=== PATIENT | female | born 1995 | race Caucasian/White ===

== ENCOUNTER 2020-01-03 10:09 | Emergency (ER) | payer SELFPAY ==
[2020-01-03] MEDS ORDERED: OXYCODONE HCL IR 5 MG TABLET PO ONE (11:07)
[2020-01-03] MEDS ORDERED: ONDANSETRON 4 MG TAB.RAPDIS PO ONE (11:07)
--- NOTE | 2020-01-03 11:08 | ER Document Report ---
ED Medical Screen (RME) - General Chief Complaint: Flank Pain Stated Complaint: FLANK PAIN Time Seen by Provider: 01/03/20 11:04 Primary Care Provider: PAUL JERRY [Primary Care Provider] - Follow up as needed - [facility] Notes: 01/03/20 11:07 Patient is a 24-year-old female no significant past medical history presents complaining of having urinary burning, urgency, frequency that began yesterday. She woke up this morning and has had left flank pain that does not radiate and has been constant that is worse when she pees. She is also had nausea today. No history of kidney stones. The pain does not radiate. No other vaginal bleeding, odor, or discharge. No fever, chest pain, abdominal pain, vomiting, diarrhea. I have treated and performed a rapid initial assessment of this patient. A comprehensive ED assessment and evaluation of the patient, analysis of test results and completion of medical decision making process will be conducted by additional ED providers. PHYSICAL EXAMINATION: GENERAL: Well-appearing, well-nourished and in no acute distress. A&Ox4. Answers questions appropriately. Abdomen: Limited exam, grossly nontender but with CVA tenderness noted to the left side. - Related Data Allergies/Adverse Reactions: acetaminophen [From Tylenol] Allergy (Verified 01/03/20 11:02) camphor [From Vicks Vaporub] Allergy (Verified 01/03/20 11:02) eucalyptus [From Vicks Vaporub] Allergy (Verified 01/03/20 11:02) ibuprofen Allergy (Verified 01/03/20 11:02) menthol [From Vicks Vaporub] Allergy (Verified 01/03/20 11:02) Penicillins Allergy (Verified 01/03/20 11:02) petrolatum,white [From Vicks Vaporub] Allergy (Verified 01/03/20 11:02) turpentine oil [From Vicks Vaporub] Allergy (Verified 01/03/20 11:02) Physical Exam - Vital signs Vitals: Temp Pulse Resp BP Pulse Ox 98.3 F 88 16 117/73 98 01/03/20 10:35 01/03/20 10:35 01/03/20 10:35 01/03/20 10:35 01/03/20 10:35 Course - Vital Signs Vital signs: Temp Pulse Resp BP Pulse Ox 98.3 F 88 16 117/73 98 01/03/20 10:35 01/03/20 10:35 01/03/20 10:35 01/03/20 10:35 01/03/20 10:35 Doctor's Discharge - Discharge Referrals: LOCALMD,NO [Primary Care Provider] - Follow up as needed
[2020-01-03 11:28] LABS: ABSOLUTE BASOPHILS # (AUTO) 0.1 10^3/uL (0.0-0.2); ABSOLUTE EOSINOPHILS # (AUTO) 0.1 10^3/uL (0.0-0.6); ABSOLUTE LYMPHOCYTES (AUTO) 2.7 10^3/uL (0.5-4.7); ABSOLUTE MONOCYTES (AUTO) 0.6 10^3/uL (0.1-1.4); ABSOLUTE NEUT (AUTO) 6.1 10^3/uL (1.7-8.2); BASOPHILS % (AUTO) 1.1 % (0-2); EOSINOPHILS % (AUTO) 1.2 % (0-6); HEMATOCRIT 44.4 % (36.0-47.0); HEMOGLOBIN 14.9 g/dL (12.0-15.5); LYMPHOCYTES % (AUTO) 27.9 % (13-45); MEAN CORPUSCULAR HEMOGLOBIN 28.3 pg (27.0-33.4); MEAN CORPUSCULAR HGB CONC 33.5 g/dL (32.0-36.0); MEAN CORPUSCULAR VOLUME 85 fl (80-97); MONOCYTES % (AUTO) 5.9 % (3-13); PLATELET COUNT 158 10^3/uL (150-450); RED BLOOD COUNT 5.25 10^6/uL (3.72-5.28); SEGMENTED NEUTROPHILS % (AUTO) 63.9 % (42-78); TOTAL CELLS COUNTED % (AUTO) 100 %; WHITE BLOOD COUNT 9.6 10^3/uL (4.0-10.5)
[2020-01-03 11:49] LABS: ALBUMIN 4.6 g/dL (3.5-5.0); ALKALINE PHOSPHATASE 77 U/L (38-126); ANION GAP 10 (5-19); ASPARTATE AMINO TRANSFERASE 23 U/L (14-36); BILIRUBIN,DIRECT 0.3 mg/dL (0.0-0.4); BLOOD UREA NITROGEN 11 mg/dL (7-20); CALCIUM 9.6 mg/dL (8.4-10.2); CARBON DIOXIDE 27 mmol/L (22-30); CHLORIDE 102 mmol/L (98-107); GLUCOSE 96 mg/dL (75-110); POTASSIUM 4.4 mmol/L (3.6-5.0); TOTAL PROTEIN 7.9 g/dL (6.3-8.2)
[2020-01-03 11:50] LABS: APPEARANCE,URINE CLOUDY; BILIRUBIN,URINE NEGATIVE (NEGATIVE); COLOR,URINE YELLOW; GLUCOSE, URINE NEGATIVE (NEGATIVE); KETONES,URINE NEGATIVE (NEGATIVE); PROTEIN,URINE 30 mg/dL (NEGATIVE); URINE SPECIFIC GRAVITY 1.005; UROBILINOGEN,URINE NEGATIVE mg/dL (<2.0)
--- NOTE | 2020-01-03 12:17 | ER Document Report ---
ED General - General Chief Complaint: Flank Pain Stated Complaint: FLANK PAIN Time Seen by Provider: 01/03/20 11:04 Primary Care Provider: PAUL JERRY [Primary Care Provider] - Follow up as needed Mode of Arrival: Ambulatory Information source: Patient Notes: 24-year-old female presents emergency department complaints of left-sided flank pain that started yesterday. Also complains of pain with void and urinary frequency. Denies fever vomiting diarrhea. Reports chills. Denies past medical history of kidney stones. Denies vaginal discharge. TRAVEL OUTSIDE OF THE [place] IN LAST 30 DAYS: No - HPI Onset: Yesterday Onset/Duration: Persistent Quality of pain: Achy Associated symptoms: Chills Exacerbated by: Denies Relieved by: Denies Similar symptoms previously: No Recently seen / treated by doctor: No - Related Data Allergies/Adverse Reactions: acetaminophen [From Tylenol] Allergy (Verified 01/03/20 11:02) camphor [From Vicks Vaporub] Allergy (Verified 01/03/20 11:02) eucalyptus [From Vicks Vaporub] Allergy (Verified 01/03/20 11:02) ibuprofen Allergy (Verified 01/03/20 11:02) menthol [From Vicks Vaporub] Allergy (Verified 01/03/20 11:02) Penicillins Allergy (Verified 01/03/20 11:02) petrolatum,white [From Vicks Vaporub] Allergy (Verified 01/03/20 11:02) turpentine oil [From Vicks Vaporub] Allergy (Verified 01/03/20 11:02) Past Medical History - General Information source: Patient Last Menstrual Period: 2 weeks ago - Social History Smoking Status: Unknown if Ever Smoked Cigarette use (# per day): No Frequency of alcohol use: None Drug Abuse: None Family History: Reviewed & Not Pertinent Patient has suicidal ideation: No Patient has homicidal ideation: No - Medical History Medical History: Negative Surgical Hx: Negative Review of Systems - Review of Systems Notes: Review HPI for review of systems., All other systems negative Physical Exam - Vital signs Vitals: Temp Pulse Resp BP Pulse Ox 98.3 F 88 16 117/73 98 01/03/20 10:35 01/03/20 10:35 01/03/20 10:35 01/03/20 10:35 02/27/20 10:35 - Notes Notes: PHYSICAL EXAMINATION: GENERAL: no acute distress, looks uncomfortable HEAD: Atraumatic, normocephalic. EYES: Pupils equal round , extraocular movements intact, sclera anicteric, conjunctiva are normal. ENT: nares patent, Moist mucous membranes. NECK: Normal range of motion, supple without lymphadenopathy LUNGS: CTAB and equal. No wheezes rales or rhonchi. HEART: Regular rate and rhythm without murmurs ABDOMEN: Soft, no tenderness. No guarding, no rebound BACK: Left flank pain EXTREMITIES: Normal range of motion, NEUROLOGICAL: Cranial nerves grossly intact. Normal sensory/motor exams. PSYCH: Normal mood, normal affect. SKIN: Warm, Dry, normal turgor, no rashes or lesions noted Course - Re-evaluation Re-evalutation: 01/03/20 12:14 24-year-old female presents emergency department with complaints of left-sided flank pain pain with void urinary frequency since yesterday. Denies fever vomiting diarrhea. Denies history of kidney stones. Labs unremarkable. UA shows positive nitrite, large leuk sites 1+ bacteria in the large amount of WBCs. Patient instructed on UTI. Patient instructed on Macrobid. Instructed to push fluids follow-up with primary care provider return here for concerns. She verbalized understanding to all instructions Laboratory 01/03/20 01/03/20 01/03/20 11:10 11:10 11:10 WBC 9.6 RBC 5.25 Hgb 14.9 Hct 44.4 MCV 85 MCH 28.3 MCHC 33.5 RDW 14.0 Plt Count 158 Lymph % (Auto) 27.9 [place] % (Auto) 5.9 Eos % (Auto) 1.2 Baso % (Auto) 1.1 Absolute Neuts (auto) 6.1 Absolute Lymphs (auto) 2.7 Absolute Monos (auto) 0.6 Absolute Eos (auto) 0.1 Absolute Basos (auto) 0.1 Seg Neutrophils % 63.9 Sodium 138.6 Potassium 4.4 Chloride 102 Carbon Dioxide 27 Anion Gap 10 BUN 11 Creatinine 0.72 Est GFR ( Amer) > 60 Est GFR (MDRD) Non-Af > 60 Glucose 96 Calcium 9.6 Total Bilirubin 1.0 Direct Bilirubin 0.3 Neonat Total Bilirubin Not Reportable Neonat Direct Bilirubin Not Reportable Neonat Indirect Bili Not Reportable AST 23 ALT 14 Alkaline Phosphatase 77 Total Protein 7.9 Albumin 4.6 Lipase 104.6 Urine Color YELLOW Urine Appearance CLOUDY Urine pH 7.0 Ur Specific [place] 1.005 Urine Protein 30 H Urine Glucose (UA) NEGATIVE Urine Ketones NEGATIVE Urine Blood MODERATE H Urine Nitrite (Reflex) POSITIVE H Urine Bilirubin NEGATIVE Urine Urobilinogen NEGATIVE Leukocyte Esterase Rfl LARGE H Urine RBC (Auto) 10 Urine Bacteria (Auto) 1+ Urine WBC (Reflex) > 182 Urine WBC Clumps MANY Squamous Epi Cells Auto 3 Urine Mucus (Auto) RARE Urine Yeast (Budding) PRESENT Urine Ascorbic Acid NEGATIVE Urine HCG, Qual NEGATIVE 01/03/20 12:29 Upon discharge patient asking for narcotic pain medication. prescription sent to pharmacy 01/03/20 14:08 - Vital Signs Vital signs: Temp Pulse Resp BP Pulse Ox 98.2 F 86 16 103/63 100 01/03/20 12:51 01/03/20 12:51 01/03/20 12:51 01/03/20 12:51 01/03/20 12:51 - Laboratory Result Diagrams: 01/03/20 11:10 01/03/20 11:10 Laboratory results interpreted by me: 01/03/20 11:10 Urine Protein 30 H Urine Blood MODERATE H Urine Nitrite (Reflex) POSITIVE H Leukocyte Esterase Rfl LARGE H Discharge - Discharge Clinical Impression: Flank pain UTI (urinary tract infection) Qualifiers: Urinary tract infection type: site unspecified Hematuria presence: with hematuria Qualified Code(s): N39.0 - Urinary tract infection, site not specified Condition: Stable Disposition: HOME, SELF-CARE Instructions: Nitrofurantoin ([facility]), Urinary Tract Infection ([facility]) Additional Instructions: *You have been evaluated for Flank pain, UTI *Take medication as prescribed *Push fluids *Follow up with your primary care provider within one week for recheck *Return to ED for worsening condition, changes, needs Prescriptions: Oxycodone HCl [Oxy-Ir 5 mg Tablet] 5 mg PO Q4HP PRN #5 tab PRN Reason: Nitrofurantoin Monohyd/M-Cryst [Macrobid 100 mg Capsule] 100 mg PO BID #20 cap Forms: Return to Work Referrals: LOCALMD,NO [Primary Care Provider] - Follow up as needed
[2020-01-03] MEDS ORDERED: NITROFURANTOIN MONOHYD/M-CRYST 100 MG CAPSULE PO ONE (12:24)
[2020-01-03] MEDS ORDERED: HYDROCODONE/ACETAMINOPHEN 5-325 MG (6 TAB/ER DISP) PO PRN (12:53)
[2020-01-03 13:08] VITALS: BP 103/63
== END 2020-01-03 13:08 | disposition home or self-care (01) ==
LOC: ER 10:09
DX: N39.0 Urinary tract infection, site not specified (principal); R31.9 Hematuria, unspecified; R68.83 Chills (without fever); R10.9 Unspecified abdominal pain; R35.0 Frequency of micturition; R30.0 Dysuria; Z88.8 Allergy status to other drugs, medicaments and biological substances; Z88.0 Allergy status to penicillin
CPT/HCPCS: 99283; 36415; 87086; 83690; 85025; 81025; 87088; 80053; 81001; 87186; S0119; J8499